=== PATIENT | female | born 1960 | race Caucasian/White ===

== ENCOUNTER 2016-07-05 07:53 | Emergency (ER) | payer OTHER ==
[~2016-07-05] VITALS: Ht 177.8 cm; Wt 114.0 kg
[2016-07-05 08:48] LABS: EOSINOPHIL COUNT 0.3 K/uL (0-0.3); HEMATOCRIT 43.7 % (36.0-46.0); IMMATURE GRANULOCYTE (%) 0.2 % (0.0-0.7); IMMATURE GRANULOCYTE COUNT 0.2 K/uL; LYMPHOCYTE COUNT 0.9 K/uL (1.0-2.8); MCH 29.8 PG (29.0-34.0); MCHC 33.6 G/DL (30.0-36.0); MCV 88.6 FL (83-99); MEAN PLAT.VOLUME 9.9 uM^3 (9.5-12.4); MONOCYTE (%) 7.1 % (3-12); MONOCYTE COUNT 0.9 K/uL (0-0.8); NEUTROPHIL (%) 83.3 % (45-76); NEUTROPHIL COUNT 10.5 K/uL (1.8-6.4); PLATELET COUNT 319 K/uL (156-360); RBC DIS.WIDTH-CV 13.9 % (11.8-14.6); RBC DIS.WIDTH-SD 44.1 % (39-53); RED BLOOD COUNT 4.93 M/uL (3.80-5.20); WHITE BLOOD COUNT 12.6 K/uL (4.1-10.2)
[2016-07-05 09:00] LABS: CHLORIDE 106 mEq/L (99-109); POTASSIUM 4.1 mEq/L (3.7-5.4); SODIUM 141 mEq/L (136-147)
[2016-07-05 09:02] LABS: GLUCOSE 127 mg/dL (70-99)
[2016-07-05 09:04] LABS: ANION GAP 14 MEQ/L (2-14); TOTAL BILIRUBIN 0.6 mg/dL (0.0-1.0)
[2016-07-05 09:06] LABS: ALKALINE PHOSPHATASE 78 IU/L (3-129); GFR ESTIMATE (CALCULATED) > 59 mL/min/
[2016-07-05 09:07] LABS: UREA NITROGEN (BUN) 22 mg/dL (9-23)
[2016-07-05 09:09] LABS: LIPASE 32 U/L (1.0-51.0)
[2016-07-05] MEDS ORDERED: LISINOPRIL30 MG PO (09:24)
[2016-07-05] MEDS ORDERED: NEXIUM20 MG PO (09:25)
[2016-07-05] MEDS ORDERED: ROSUVASTATIN CA10 MG PO (09:25)
[2016-07-05 10:14] LABS: C DIFF TOXIN NEGATIVE (NEGATIVE)
[2016-07-05 10:38] LABS: ADD MIUA? YES; BILIRUBIN NEGATIVE; BLOOD NEGATIVE; COLOR YELLOW ((YELLOW)); GLUCOSE (STRIP) NEGATIVE; KETONES TRACE; LEUKOCYTES SMALL; NITRITE NEGATIVE; PROTEIN (STRIP) 30; SPECIFIC GRAVITY 1.023 (1.000-1.030); UROBILINOGEN 0.2 MG/DL (0.2-1.0)
[2016-07-05 10:46] LABS: PROBE CHECK PASS; SPECIMEN PROCESSING CONTROL PASS
[2016-07-05 10:59] LABS: EPITHELIAL CELLS NONE SEEN; RED BLOOD CELLS RARE /HPF (0-5)
[2016-07-05 11:00] LABS: BACTERIA RARE; CASTS NONE SEEN /LPF; CRYSTALS NONE SEEN; MUCUS 2+; UCUL ADDED? NO
[2016-07-05] MEDS ORDERED: ZOFRAN ODT4 MG PO (11:48)
[2016-07-05] MEDS ORDERED: BENTYL10 MG PO (11:48)
[2016-07-05 12:07] VITALS: BP 130/85
== END 2016-07-05 12:15 | disposition home or self-care (01) ==
LOC: EME 07:53 → EXP 07:53
PROVIDERS: Emergency Medicine
DX: R19.7 Diarrhea, unspecified (principal); E78.5 Hyperlipidemia, unspecified; I10 Essential (primary) hypertension; K21.9 Gastro-esophageal reflux disease without esophagitis
CPT/HCPCS: 80053; 81003; 83690; 85025; 87086; 87493; 87506; 99281; 99285; J0500; J2405; J7030